=== PATIENT | female | born 1955 | race Two or more races ===

== ENCOUNTER 2022-06-02 07:00 | Inpatient (IN) | payer OTHER ==
[~2022-06-02] VITALS: Ht 137.2 cm; Wt 136.1 kg
[2022-06-02] MEDS ORDERED: OMEPRAZOLE-BIC1 EAC1 (07:24)
[2022-06-02] MEDS ORDERED: ATORVASTATIN CA40 MG (07:25)
[2022-06-02] MEDS ORDERED: GLUMETZA500 MG (07:25)
[2022-06-02] MEDS ORDERED: TOPROL XL25 M1 (07:26)
[2022-06-02] MEDS ORDERED: NABUMETONE750 MG (07:26)
[2022-06-02] MEDS ORDERED: CARVEDILOL ER40 MG PO (07:27)
[2022-06-02] MEDS ORDERED: VASOTEC20 M1 (07:29)
--- NOTE | 2022-06-02 07:29 | NUR ---
SE RECIBE FEMINA ALERTA Y ORIENTADA X3. VERBALIZA REFERIDA POR DR MARY HERNANDEZ DE VIEQUEZ. REFIERE PROBLEMAS RESPIRATORIOS. [facility] LABORATORIOS CON RESULTADOS HGB 7.0 G/DL. SE MIDEN S/V Y SE UBICA
--- NOTE | 2022-06-02 07:36 | NUR ---
SE REALIZA EKG Y SE PRESENTA A DR TAYLOR
--- NOTE | 2022-06-02 08:26 | NUR ---
PTE EVALUADO POR DR. GOMEZ QUIEN [place] MED. SE EDUCA A PTE Y FAMILIAR SOBRE EL MISMO Y REFEIR EENTDNER. MS DOWELL EDUCA Y EJECUTA ORDENES BAJO MEDIDAS ACEPTICAS. PTE PEND A RESULTADOS DE LAB.
--- NOTE | 2022-06-02 14:59 | NUR ---
SE RECIBE PACIENTE DEL TURNO ANTERIOR, LA MISMA SE ENCUENTRA EN HODAN CON BARANDAS ELEVADAS POR PRECAUCION A CAIDAS, ALERTA Y ORIENTADA X3, SE LE ORIENTA SOBRE CONTINUIDAD DE [place] Y VERBALIZA ENTENDER, PACIENTE CON H/L, PENDIENTE REEVALUACION MEDICA.
== END 2022-06-05 21:05 | disposition home or self-care (01) | DRG 812 ==
LOC: ER 07:00 → MEDJ 17:00 → MEDI 20:15
PROVIDERS: ADMIT Internal Medicine; ATTEND Internal Medicine
PROC: B24BZZZ Ultrasonography of Heart with Aorta (ICD-10-PCS; principal; 2022-06-02)
PROC: BW21YZZ Computerized Tomography (CT Scan) of Abdomen and Pelvis using Other Contrast (ICD-10-PCS; 2022-06-02)
PROC: 4A12X4Z Monitoring of Cardiac Electrical Activity, External Approach (ICD-10-PCS; 2022-06-02)
PROC: 30233N1 Transfusion of Nonautologous Red Blood Cells into Peripheral Vein, Percutaneous Approach (ICD-10-PCS; 2022-06-03)
DX: D64.9 Anemia, unspecified (principal); I11.0 Hypertensive heart disease with heart failure; I50.9 Heart failure, unspecified; G47.33 Obstructive sleep apnea (adult) (pediatric); E78.5 Hyperlipidemia, unspecified; E66.01 Morbid (severe) obesity due to excess calories; D50.8 Other iron deficiency anemias; Z20.822 Contact with and (suspected) exposure to COVID-19; E11.9 Type 2 diabetes mellitus without complications; Z79.4 Long term (current) use of insulin

== ENCOUNTER 2022-06-16 16:39 | Emergency (ER) | payer OTHER ==
[~2022-06-16] VITALS: Ht 162.6 cm; Wt 119.3 kg
[~2022-06-16 16:39] MED LIST: ATORVASTATIN CA40 MG; CARVEDILOL ER40 MG PO; GLUMETZA500 MG; NABUMETONE750 MG; OMEPRAZOLE-BIC1 EAC1; TOPROL XL25 M1; VASOTEC20 M1
== END 2022-06-16 22:02 | disposition home or self-care (01) ==
LOC: ER 16:39
DX: D64.89 Other specified anemias (principal); Z20.822 Contact with and (suspected) exposure to COVID-19; Z88.0 Allergy status to penicillin

== ENCOUNTER 2022-07-07 18:01 | Emergency (ER) | payer OTHER ==
[~2022-07-07] VITALS: Ht 137.2 cm; Wt 116.1 kg
== END 2022-07-07 21:37 | disposition home or self-care (01) ==
LOC: ER 18:01
DX: D64.9 Anemia, unspecified (principal); Z88.0 Allergy status to penicillin